=== PATIENT | female | born 1990 | race Caucasian/White ===

== ENCOUNTER 2018-05-01 12:25 | Inpatient (IN) | payer OTHER ==
[2018-05-01] MEDS ORDERED: Promethazine HCl 25 MG/ML VIAL IM PRN ×3 (12:47→20:35)
[2018-05-01] MEDS ORDERED: Ondansetron PF 4 MG/2 ML Vial IVP PRN ×4 (12:47→20:35)
[2018-05-01] MEDS ORDERED: Docusate 100 MG CAP PO PRN (12:47)
[2018-05-01] MEDS ORDERED: Bicitra 30 ML UDCUP PO SCH (13:00)
[2018-05-01] MEDS ORDERED: CEFAZOLIN/Water 2 GM/20 ML SYRINGE SLOW IVP SCH (13:00)
[2018-05-01 13:56] LABS: Hemoglobin 10.2 g/dL (12.0-16.0); Mean Corpuscular HGB CONC 32.9 g/dL (32.0-36.0); Mean Platelet Volume 10.1 fL (7.4-10.4); Platelet Count 174 thou/uL (130-400); Red Blood Cell (RBC) Count 4.08 mill/uL (4.20-5.40)
[2018-05-01] MEDS ORDERED: CEFAZOLIN 2 GM/50 ML-DEXTROSE 2 GM in Premix Bag 1 BAG IVPB SCH (14:00)
[2018-05-01 14:24] LABS: Hep B Surf Ag Non-Reactive S/CO (NonReactive)
[2018-05-01 14:50] LABS: Syphilis Antibody Nonreactive (Nonreactive); Syphilis Antibody Index 0.05 S/CO (<1.00 Non-Reactive)
[2018-05-01 15:16] VITALS: BMI 26.6
[2018-05-01] MEDS: Lactated Ringer's 1,000 ML IV SCH (17:22)
[2018-05-01] MEDS ORDERED: Morphine PF 1 MG/ML SYR ONE (17:22)
[2018-05-01] MEDS ORDERED: Bupivacaine 0.75% W/DEXTROSE 8.25% 2 ML AMP ONE (17:23)
[2018-05-01] MEDS ORDERED: Lidocaine 1% PF 5 ML VIAL ONE ×2 (17:23→18:16)
[2018-05-01] MEDS ORDERED: PHENYLEPHRINE-NS 100 MCG/ML 10 ML SYRINGE ONE (17:23)
[2018-05-01] MEDS ORDERED: Oxytocin 10 UNITS/ML VIAL ONE ×2 (17:23→18:37)
[2018-05-01] MEDS ORDERED: Ondansetron HCl/PF 4 MG/2 ML Vial IVP PRN (17:36)
[2018-05-01] MEDS ORDERED: Ketorolac Tromethamine 30 MG/ML VIAL IVP PRN (17:36)
[2018-05-01] MEDS ORDERED: Naloxone HCl 0.4 mg/ml Vial IVP PRN ×4 (17:36→20:35)
[2018-05-01] MEDS ORDERED: diphenhydrAMINE 50 MG/ML VIAL IVP PRN ×2 (17:36→20:35)
[2018-05-01] MEDS ORDERED: Naloxone HCl 0.4 mg/ml Vial IV PRN ×2 (17:36→20:35)
[2018-05-01] MEDS ORDERED: Meperidine HCl/PF 25 MG/ML VIAL SLOW IVP PRN (17:36)
[2018-05-01] MEDS ORDERED: HYDROmorphone 2 MG/ML VIAL SLOW IVP PRN (17:36)
[2018-05-01] MEDS ORDERED: Promethazine HCl 25 MG SUPP PR PRN ×2 (17:36→20:35)
[2018-05-01] MEDS ORDERED: L&D-Morphine 4 MG/ML VIAL SLOW IVP PRN (17:36)
[2018-05-01] MEDS ORDERED: Eucerin (Mineral Oil/Petrolatum,White) 30 gm Jar TOP PRN ×2 (17:36→20:35)
[2018-05-01] MEDS ORDERED: Communication Order-Pharmacy FS SCH ×2 (17:45→20:45)
[2018-05-01] MEDS ORDERED: Ketorolac Tromethamine 30 MG/ML VIAL IVP SCH (17:45)
[2018-05-01] MEDS ORDERED: Dexamethasone 4 mg/ml Vial ONE (18:16)
[2018-05-01] MEDS ORDERED: Ondansetron PF 4 MG/2 ML Vial ONE (18:16)
[2018-05-01] MEDS ORDERED: Lanolin Ointment 7 GM TUBE TOP PRN (18:58)
[2018-05-01] MEDS ORDERED: HYDROcodone/Acetaminophen 5/325 mg Tablet PO PRN ×2 (18:58)
[2018-05-01] MEDS ORDERED: Ketorolac Tromethamine 30 MG/ML VIAL ONE (19:03)
[2018-05-02] MEDS: Lactated Ringer's 1,000 ML IV SCH (00:28)
[2018-05-02] MEDS: Docusate Calcium (SURFAK) 240 MG CAP PO SCH ×2 (02:34→08:48)
[2018-05-02] MEDS: Ibuprofen 800 MG TAB PO SCH ×4 (02:34→17:12)
[2018-05-02] MEDS: Ketorolac Tromethamine 30 MG/ML VIAL IVP PRN ×2 (04:55→12:33)
[2018-05-02] MEDS ORDERED: Sodium Chloride 0.9% 0 ML ONE (05:06)
[2018-05-02] MEDS: Ferrous Sulfate 325 MG TAB PO SCH ×2 (07:37→14:26)
[2018-05-02] MEDS: Prenatal Vitamin 1 TAB PO SCH (08:49)
[2018-05-02] MEDS ORDERED: Adacel (T-DAP) 0.5 ML SYRINGE IM ONE (09:00)
[2018-05-02] MEDS ORDERED: Sodium Chloride 0.9% 10 ML ONE (11:00)
--- NOTE | 2018-05-02 14:57 | OP ---
DATE OF PROCEDURE: 05/01/2018 PREOPERATIVE DIAGNOSES: 1. A 27-year-old, G2, P0-0-1-0, who presented at 38 weeks and 1 day with a footling breech. 2. Advanced cervical dilation. 3. GBS negative. 4. Anemia of . POSTOPERATIVE DIAGNOSES: 1. A 27-year-old, G2, P0-0-1-0, who presented at 38 weeks and 1 day with a footling breech. 2. Advanced cervical dilation. 3. GBS negative. 4. Anemia of . 5. Live-born female, weighing 6 pounds 3 ounces with Apgars of 5, 7, and 9 at 1 , 5, and 10 minutes respectively. SURGEON: Dr Lydia Erickson SENIOR QUANTITY SURVEYOR: Dr. Pablo Saleh. PROCEDURE PERFORMED: Primary low transverse section. ANESTHESIA: Spinal. ESTIMATED BLOOD LOSS: 200 mL. QUANTITATIVE BLOOD LOSS: 190 mL. CLINICAL HISTORY: This patient is a 27-year-old G2, P0-0-1-0, who presented to the office for her routine OB appointment at 38 weeks and 1 day, and she had noticed some contraction that were irregular and were quantified as Ayaz Wilson contractions. She had normal evaluation of the fetus with normal Doptones. However, when her cervical exam was performed, she was noted to be 4 cm, 80% effaced in -3 station with feet in the cervix through the amniotic sac. The ultrasound was performed to confirm and the patient's position was noted to be double footling breech. The patient was counseled on contraindications to version and was sent to the hospital for delivery. The risks, benefits, and possible complications as well as alternatives were discussed and the patient was prepped for surgical delivery. DETAILS OF THE PROCEDURE: The patient was taken to the operating room, where spinal anesthesia was obtained. She was laid down in the supine position with a leftward tilt and prepped and draped in the usual sterile fashion. After testing for adequate anesthesia, an incision was made in the lower pelvis in a Pfannenstiel manner with a scalpel and this was carried down to the fascia. The fascia was nicked in the midline and the incision was extended bilaterally with the Friend scissors. Yenny Clamp x2 were used to elevate the rectus muscle from the superior edge of the fascia with a combination of blunt and sharp dissection. The posterior edge was in the similar fashion used to elevate the inferior border of the fascia from the pyramidalis and rectus muscles. The rectus midline raphe was then elevated with 2 mosquito clamps and an incision was made to separate the rectus muscles. The peritoneum was then breeched beneath this layer and the peritoneum was entered. The incision was extended with both the combination of sharp and blunt dissection, and the bladder blade was then placed. A bladder flap was created using Metzenbaum scissors and Russians and the bladder was reflected further down out of the surgical field. An incision was then made over the uterus and when the amnion was breeched, fluid was clear. The incision was then extended and the surgeon's hand was placed inside the uterus to grab both feet to bring them to the incision. They were delivered through the incision followed by the hips, then the hips were grasped with wet towel. The posterior shoulder was delivered, followed by the anterior shoulder and then the remainder of the infant's head with tucking of the chin. The cried spontaneously. The cord was doubly clamped and cut, and she was lifted to her parents and then taken over to the Neonatology bed for continued evaluation. Cord blood was obtained. Placenta was then manually dissected and removed and was noted to have 3-vessel cord and was intact. The uterus was then exteriorized and the uterus was then cleansed of all debris with a dry lap. Ring forceps was placed on the inferior border and the uterine incision was then closed in a running locking fashion with excellent hemostasis with a 2-0 Vicryl. The bladder flap was then closed over, reapproximated to the serosa with a 2-0 Monocryl. Again, excellent hemostasis was noted. The gutters were cleansed of all debris and there was noting of a narrowed pelvis with a sacral prominence. The seprafilm was placed over the uterine incision and the anterior surface of the uterus in 4 pieces. The uterus was then placed back into the abdomen and the peritoneum was closed in a running fashion. The rectus muscles were then reapproximated with [id number] sutures. The prefascial gutters were then cleansed of all debris and the fascia was then closed in a running suture. Excellent hemostasis was noted. The subcutaneous tissues were then irrigated copiously with sterile fluid and Bovie cautery was used to correct any bleeding. The space was then closed in the subcutaneous tissue with interrupted 2-0 plain gut sutures and the skin was then closed with a 4-0 Monocryl with excellent hemostasis. This incision was reinforced with Steri strips and a pressure dressing was placed over this. Once the patient had her wound dressed, she was expressed on the operating table with minimal blood loss. The uterus was noted to be significantly below the umbilicus. The patient was then transferred to a rledger and transferred to the post surgical unit in satisfactory condition. All needle, sponge, lap, and instrument counts were correct x2 at the end of the procedure. There were no other issues surrounding this delivery. Mother was allowed to put baby [id number] and attempted . Job ID: [id number] [facility]
[2018-05-02] MEDS: Simethicone Chewable 80 MG TAB PO PRN (23:30)
[2018-05-03] MEDS: Docusate Calcium (SURFAK) 240 MG CAP PO SCH ×2 (00:41→08:56)
[2018-05-03] MEDS: Ibuprofen 800 MG TAB PO SCH ×3 (02:16→08:56)
[2018-05-03] MEDS: Simethicone Chewable 80 MG TAB PO PRN (06:11)
[2018-05-03] MEDS: Prenatal Vitamin 1 TAB PO SCH (08:56)
[2018-05-03] MEDS: Ferrous Sulfate 325 MG TAB PO SCH (08:57)
[2018-05-03 12:08] VITALS: BP 120/68; TEMP 98.5
== END 2018-05-03 13:15 | disposition home or self-care (01) | DRG 788 ==
LOC: L&D-LIB 12:25 → 3SW 20:29 → EDSTATUS 05-14 12:23
PROVIDERS: ADMIT Obstetrics & Gynecology; ATTEND Obstetrics & Gynecology
PROC: 10D00Z1 Extraction of Products of Conception, Low, Open Approach (ICD-10-PCS; principal; 2018-05-01)
DX: O32.1XX0 Maternal care for breech presentation, not applicable or unspecified (principal); Z37.0 Single live birth; Z3A.38 38 weeks gestation of pregnancy; O99.02 Anemia complicating childbirth; D64.9 Anemia, unspecified
CPT/HCPCS: 36415; 51702; 85027; 86780; 86850; 86900; 86901; 87340; J1100; J1885; J2001; J2274; J2405; J2590; J3490